=== PATIENT | female | born 2000 | race Caucasian/White ===

== ENCOUNTER 2020-01-22 10:43 | Outpatient (REF) | payer OTHER, SELFPAY | END 2020-01-22 10:44 | disposition home or self-care (01) | LOC: HO.LAB 10:43 | PROVIDERS: Visit Provider Internal Medicine | DX: Z20.828 Contact with and (suspected) exposure to other viral communicable diseases (principal) | CPT/HCPCS: U0003 ==

== ENCOUNTER 2020-01-28 15:59 | Outpatient (REF) | payer OTHER, SELFPAY | END 2020-01-28 16:00 | disposition home or self-care (01) | LOC: HO.LAB 15:59 | PROVIDERS: Visit Provider Internal Medicine | DX: Z20.828 Contact with and (suspected) exposure to other viral communicable diseases (principal) | CPT/HCPCS: C9803; U0003 ==

== ENCOUNTER 2021-01-29 11:11 | Emergency (ER) | payer OTHER, SELFPAY ==
--- NOTE | 2021-01-29 11:20 | PC.NURSE ---
PT TO HAVE EKG IN TRIAGE
--- NOTE | 2021-01-29 11:21 | ECG_ITS ---
Test Reason : chest pain Blood Pressure : / mmHG Vent. Rate : 073 BPM Atrial Rate : 073 BPM P-R Int : 084 ms QRS Dur : 092 ms QT Int : 366 ms P-R-T Axes : 013 081 037 degrees QTc Int : 403 ms Sinus rhythm with sinus arrhythmia with short MO Otherwise normal ECG No previous ECGs available Referred By: Generic ED Physician Electronically Signed By:Braulio Vergara
[2021-01-29 11:32] VITALS: BP 117/65; PULSE 73; RESP 16; TEMP 36.3; O2SAT 99; BMI 23.0
--- NOTE | 2021-01-29 12:03 | ED_ITS ---
HPI - Chest Pain General Chief Complaint: Chest Pain Stated Complaint: CHEST PAIN DIFF BREATING Time Seen by Provider: 01/29/21 12:03 Source: patient Limitations: no limitations History of Present Illness HPI narrative: Patient presents to the ER with sore throat chest wall pain and slight cough. Patient states symptoms have been about 2 days. Patient denies history of asthma diabetes or tobacco history. Patient is fully vaccinated for COVID-19. Cough has been nonproductive. Patient denies any known COVID-19 exposure or travel history. Symptoms are [id number]. Pain increases with swallowing from sore throat. That is 5/10. No other complaints at this time. Related Data Allergies Allergy/AdvReac Type Severity Reaction Status Date / Time No Known Allergies Allergy Verified 01/29/21 11:21 Review of Systems Constitutional: Constitutional: Denies chills, Denies fever(s) and Denies headache(s) ENT: Denies headache(s), Reports nasal congestion, Denies neck pain and Reports sore throat Cardiovascular: Cardiovascular: Denies chest pain and Reports dyspnea Respiratory: Respiratory: Reports cough, Reports pain with cough and Reports dyspnea Gastrointestinal: Gastrointestinal: Denies nausea and Denies vomiting Musculoskeletal: Musculoskeletal: Denies back pain and Denies neck pain Neurologic: Denies headache(s) Endocrine: Endocrine: Reports no additional endocrine complaints Allergic/Immunologic: Allergic/Immunologic: Reports no additional allergic/immunologic complaints [facility]LY [facility] Past Medical History Medical History No known health problems Social History Social History Advance Directives: No Advance Directives Information Provided: No Patient : No Physical Exam Vital Signs: Vital Signs: Last Vital Signs Temp 97.4 F 01/29/21 11:32 Pulse 73 01/29/21 11:32 Resp 16 01/29/21 11:32 BP 117/65 01/29/21 11:32 Pulse Ox 99 01/29/21 11:32 BMI result Body Mass Index 23.0 vital signs have been reviewed as normal and appeared to be correct. Blood pressure normal. Heart rate normal. Respiration rate normal. Temperature normal. Oxygen saturation normal. Appearance: Alert. Oriented X3. No acute distress. Head: Normal external exam. Normocephalic. Atraumatic. Eyes: PERRLA. EOMI. Conjunctiva and sclera normal. Eyelids normal. ENT: Positive erythema of the throat uvula is midline no evidence of peritonsillar abscess. No trismus no drooling Neck: Soft full range of motion CVS: Heart regular rate and rhythm no murmurs and rubs Respiratory: Breath sounds are clear to auscultation bilaterally. No accessory muscle use noted. Back: Full range of motion noted. Skin: Skin warm and dry. Normal skin color. No rashes ecchymosis noted Extremities: Moving all extremities patient is ambulatory Neuro: Oriented X 3. No motor deficit. No sensory deficit. Reflexes normal. Course Course Course Narrative: Acute pharyngitis Viral URI COVID-19 Acute bronchitis EKG reviewed normal sinus rhythm at a rate of [address] elevation Swab for strep and COVID-19 is pending Patient's vital signs are stable 12:34 p.m. Swab for COVID-19 is negative and strep. MDM - Chest Pain Lab Data Labs: Lab Results 01/29/21 01/29/21 Range/Units 11:55 11:55 COVID-19 (RADHA) Negative (Negative) COVID-19 Clin Com See Note S. pyogenes GrpA BRITNI Negative (Negative) Discharge Plan Discharge Clinical Impression: Upper respiratory infection Qualifiers: URI type: unspecified viral URI Qualified Code(s): J06.9 - Acute upper respir atory infection, unspecified Patient Disposition: Home, Self-Care Instructions: Upper Respiratory Infection (ED) Additional Instructions: COVID-19 swab test is negative Rapid strep test is negative they will call you if he becomes positive Increase fluids rest Tylenol Motrin for pain or fever Return if symptoms worsen Stand Alone Forms: Work/School Release
[2021-01-29 12:12] LABS: IDNOW Serial# 9DD0AD1C; Strep A Nucleic Acid Negative (Negative)
[2021-01-29 12:32] LABS: COVID-19 Test Negative (Negative); IDNOW Serial# 55D5AD1C
[2021-01-29 12:40] VITALS: BP 109/70; PULSE 70; RESP 18; TEMP 36.9; O2SAT 99
== END 2021-01-29 13:01 | disposition home or self-care (01) ==
PROVIDERS: Emergency Provider Emergency Medicine
DX: J06.9 Acute upper respiratory infection, unspecified (principal); Z20.822 Contact with and (suspected) exposure to COVID-19; J02.9 Acute pharyngitis, unspecified
CPT/HCPCS: 36415; 87635; 87651; 93005; 99283; 99284

== ENCOUNTER 2023-04-25 13:30 | Emergency (ER) | payer OTHER, SELFPAY ==
--- NOTE | ~2023-04-25 | CT_ITS ---
EXAMINATION: CT ABDOMEN AND PELVIS WITH CONTRAST CLINICAL INFORMATION: Abdominal pain, nausea and vomiting COMPARISON: Ultrasound abdomen 04/25/2023 TECHNIQUE: Multidetector volumetric images were obtained from the superior aspect of the liver through the pubic symphysis following administration 85 mL of Omnipaque 350 intravenous contrast. Sagittal and coronal reformatted images were obtained on the technologist's workstation. Oral contrast: No This CT examination was performed using dose optimization techniques as appropriate, variously including the following: *Automated exposure control *Adjustment of mA and/or kV according to patient size (this includes techniques or standardized protocols for targeted exams where dose is matched to indication/reason for exam; i.e. extremities or head) *Use of iterative reconstruction technique DLP: 393 mGy-cm FINDINGS: LUNG BASES: The visualized lung bases are unremarkable. LIVER, GALLBLADDER, AND BILIARY TREE: The liver is normal in size, shape, and attenuation. No focal hepatic lesion or biliary ductal dilatation is present. The gallbladder is unremarkable with no evidence of radiopaque gallstones, gallbladder wall thickening, or obvious pericholecystic inflammatory changes. PANCREAS: Unremarkable. SPLEEN: Unremarkable. ADRENAL GLANDS: Unremarkable. KIDNEYS AND URETERS: The kidneys are normal in size, shape, and attenuation. No hydronephrosis, hydroureter, or calculi seen. No perinephric stranding. BLADDER: Unremarkable. GASTROINTESTINAL TRACT: The small and large bowel are unremarkable. The appendix is not seen but there is no evidence of appendicitis evidence to suggest appendicitis. ABDOMINAL WALL: No significant hernia is appreciated. LYMPH NODES: Normal. VASCULAR: Unremarkable. PELVIC VISCERA: The uterus and adnexa are unremarkable. A small amount of free fluid is present in the pelvis. OSSEOUS STRUCTURES: Unremarkable. CT/CT abdomen pelvis w IV con IMPRESSION: No significant abnormality. Fleischner guidelines were followed.
--- NOTE | ~2023-04-25 | US_ITS ---
EXAMINATION: US ABDOMEN COMPLETE CLINICAL INFORMATION: Nausea and vomiting. Lower abdominal pain. COMPARISON: None available. TECHNIQUE: Real-time imaging of the abdominal viscera. FINDINGS: PANCREAS: The pancreas is not visualized secondary to obscuration by overlying bowel gas. ABDOMINAL AORTA: The proximal, mid, and distal segments are normal in caliber. INFERIOR VENA CAVA: Visualized portions are normal. LIVER: Normal. The liver is normal in size. The liver contour is normal. Parenchymal echogenicity is normal. No focal hepatic lesion. There is no intrahepatic biliary duct dilatation seen. GALLBLADDER: Normal. The gallbladder is physiologically distended without evidence of stones, sludge, polyps, wall thickening or pericholecystic fluid. COMMON BILE DUCT: Normal in caliber measuring 0.2 cm in diameter. RIGHT KIDNEY: Normal. No hydronephrosis. No renal calculi or focal parenchymal lesions. The kidney measures 9.8 cm in maximum dimension. LEFT KIDNEY: Normal. No hydronephrosis. No renal calculi or focal parenchymal lesions. The kidney measures 10.3 cm in maximum dimension. SPLEEN: Normal. The spleen measures 8.7 cm in maximum dimension. FREE FLUID: None. The appendix is not visualized. The right ovary measures 2.7 x 1.4 x 1.4 cm. Vascular flow is seen to the right ovary. US/US abdomen complete IMPRESSION: Visualized abdominal and pelvic structures are within normal limits. The pancreas is not visualized secondary to obscuration from overlying bowel gas. The appendix is not seen.
[2023-04-25 13:39] VITALS: BP 110/64; PULSE 60; O2SAT 100
[2023-04-25 14:06] VITALS: BP 104/48; PULSE 60; RESP 17; TEMP 36.1; O2SAT 98; BMI 23.0
--- NOTE | 2023-04-25 14:06 | ED_ITS ---
HPI - Nausea/Vomiting/Diarrhea General Chief complaint: Abdominal Pain Stated complaint: abd pain,n/v,dizzy per ems Time Seen by Provider: 04/25/23 19:08 Source: patient Mode of arrival: EMS Limitations: no limitations History of Present Illness HPI Narrative: Patient is a 22-year-old female who presents to the emergency department via EMS for evaluation of abdominal pain. She reports approximately 2 hours prior to arrival she developed diffuse lower abdominal pain with nausea and multiple episodes of bilious vomiting approximately 8-10 episodes. Pain has been constant with varying intensity. Intermittent dizziness during episodes of vomiting. Pain is primarily in the suprapubic region but does radiate to the bilateral sides as well as diffusely across the lower back. She reports a history of similar pain in the past reportedly with unidentified etiology. She denies any recent fevers, chills, chest pain, shortness of breath, possibility of , concern for sexually transmitted infection, dysuria, urinary frequency/urgency/hesitancy, hematuria, abnormal vaginal discharge Related Data Previous Rx's Medication Instructions Recorded ondansetron 4 mg disintegrating 4 mg PO Q8H PRN nausea and 04/25/23 tablet vomiting #10 tabs Allergies Allergy/AdvReac Type Severity Reaction Status Date / Time No Known Allergies Allergy Verified 04/25/23 14:06 Review of Systems 2 Review of Systems: Yes all other systems are reviewed and are negative PMFSH Past Medical History Attestation statement: The following information was validated with the patient. Source: old records reviewed Medical History No known health problems Social History Social History Smoked in Last 30 Days: No Use of substances other than those prescribed or required for medical reasons: No Advance Directives: No Advance Directives Information Provided: No Patient : No Physical Exam 2 Vital Signs: Vital Signs: Last Vital Signs Temp 98.1 F 04/25/23 20:18 Pulse 73 04/25/23 20:18 Resp 18 04/25/23 20:18 BP 105/68 04/25/23 20:18 Pulse Ox 99 04/25/23 20:18 O2 Del Method Room Air 04/25/23 20:18 BMI result Body Mass Index 23.0 Appearance: Alert.?Oriented to person, place and time. No acute distress.?Normal affect. Eyes: Pupils equal, round and reactive to light.? ENT: Pharynx normal.?? Neck: Normal inspection.? Neck supple.?? CVS: Heart sounds normal. Normal heart rate and rhythm.? Pulses normal.?? Respiratory: No respiratory distress.? Lung sounds clear to auscultation bilaterally?? Abdomen: Soft with diffuse lower abdominal tenderness. Diffuse lower lumbar/CVA tenderness bilaterally Normoactive bowel sounds. No pulsatile mass.?? Skin: Skin warm and dry.? Normal skin color.? Extremities: No lower extremity edema.? No calf ttp? Neuro: Moves all extremities spontaneously. Sensation intact bilaterally. CN II- XII intact. No focal neuro deficits. Ambulates with normal steady gait. Course Course Course Narrative: RME-14PM - 22-year-old female presenting to the ER with complaints of sudden onset of nausea/vomiting approximately 2 hours prior to arrival with associated suprapubic abdominal pain. Reports some dizziness. Denies any changes in vision, fevers, cough congestion, chest pain or shortness of breath, palpitations paresthesias, black or bloody stools, constipation, diarrhea, dysuria, abnormal vaginal discharge, recent travel or sick contacts she is aware of or any other symptoms complaints or concerns at this time. Plan: Labs, UA, COVID/RSV/flu swab ordered at this time. Patient will be sent back to the waiting room to be evaluated in the ED Reevaluation(s) Reevaluation #1: CT of the abdomen and pelvis is without acute pathology. Tolerating oral intake, discussed with patient possible viral etiology. Discussed bland diet, prescription for Zofran to pharmacy, outpatient follow-up with primary care provider, worrisome signs and symptoms that would warrant re-evaluation in the emergency department. All questions answered. Stable for discharge. Time: 21:16 Medications Administered Discontinued Medications Generic Name Dose Route Start Last Admin Trade Name Freq PRN Reason Stop Dose Admin Iohexol 85 ml 04/25/23 19:56 04/25/23 19:57 Iohexol 350 Mg/Ml 100 Ml Infus..Btl IV 04/25/23 19:57 85 ml ONCE ONE Administration Ketorolac Tromethamine 30 mg 04/25/23 20:06 04/25/23 20:53 Ketorolac Tromethamine 30 Mg/Ml Vial IVPUSH 04/25/23 20:07 30 mg ONCE ONE Administration Ondansetron HCl 4 mg 04/25/23 16:18 04/25/23 16:20 Ondansetron Odt 4 Mg Tab.Rapdis TRANSLINGU 04/25/23 16:19 4 mg ONCE ONE Administration Ondansetron HCl 4 mg 04/25/23 20:06 04/25/23 20:53 Ondansetron Hcl 4 Mg/2 Ml Vial IVPUSH 04/25/23 20:07 4 mg ONCE ONE Administration Medical Decision Making Medical Decision Making [facility] Narrative: Patient is a 22-year-old female who presents emergency department for evaluation of abdominal pain with nausea and vomiting as per HPI. At the time my examination she appears overall well, nontoxic, afebrile without tachycardia. Reports nausea has resolved at this time and has been without vomiting for the past hour. Lower abdominal pain is currently 6/10 for which she will receive Toradol. An ultrasound was obtained prior to my assumption of care which is without acute identify a pathology however pancreas was not visualized and the appendix is not seen. Upon review of labs, urinalysis with microscopic hematuria, not compelling for urinary tract infection, hCG is negative. CMP overall unremarkable aside from elevated random glucose at 01:49 she did admit to having had something to eat prior to labs being obtained, lipase is within normal range. CBC reveals notable leukocytosis of 20.5 with left shift, may be reactive due to vomiting, however will obtain CT of the abdomen and pelvis for further evaluation Differential Diagnosis Differential Diagnoses: The differential diagnosis associated with the presentation includes (Viral syndrome, diverticulitis, appendicitis, colitis, renal colic, hydronephrosis, urinary tract infection. Less likely ovarian torsion, ectopic .) Admission/Observation Consideration of admission/observation: Escalation of care including admission/observation considered (See narrative above in course narrative for further detail) Lab Data MDM Lab Attestation statement: I reviewed the patient's lab results. (See narrative above) 04/25/23 14:31 04/25/23 14:31 Labs: Lab Results 04/25/23 04/25/23 Range/Units 14:31 15:37 WBC 20.5 H (4.8-10.8) X10*3/uL RBC 4.72 (4.20-5.50) X10*6/uL Hgb 13.8 (12.0-16.0) g/dl Hct 41.0 (37.0-47.0) % MCV 86.9 (80.0-98.0) fL MCH 29.2 (27.0-33.0) pg MCHC 33.7 (31.0-35.0) g/dl RDW 11.8 (11.0-16.0) % Plt Count 249 (160-400) X10*3/uL MPV 11.1 (9.4-12.3) fL Immature Gran % (Auto) 0.6 H (0.0-0.4) % Neut % (Auto) 87.9 H (45-73) % Lymph % (Auto) 6.4 L (20-40) % [place] % (Auto) 4.5 (2-11) % Eos % (Auto) 0.2 (0-4) % Baso % (Auto) 0.4 (0-2) % Lymph # (Auto) 1.3 (1.2-4.9) X10*3/uL [place] # (Auto) 0.9 (0.1-1.2) X10*3/uL Eos # (Auto) 0.0 (0.0-0.4) X10*3/uL Baso # (Auto) 0.1 (0.0-0.2) X10*3/uL Abs Immat Gran (auto) 0.12 H (0.00-0.03) X10*3/uL Absolute Neuts (auto) 18.0 H (2.0-8.3) x10*3/uL Absolute Nucleated RBC 0.000 (0.0-0.012) X10*3/uL Nucleated RBC % (auto) 0.0 (0.0-0.2) /100WBC Sodium 137 (135-145) mmol/L Potassium 4.1 (3.3-5.1) mmol/L Chloride 106 (96-108) mmol/L Carbon Dioxide 23 (22-29) mmol/L Anion Gap 12 (12-20) BUN 13 (9-16) mg/dL Creatinine 0.72 (0.5-1.4) mg/dL Estim Creat Clear Calc 100.5 Estimated GFR > 60 Random Glucose 149 H (60-115) mg/dL Calcium 9.2 (8.4-10.2) mg/dL Magnesium 1.7 (1.6-2.6) mg/dL Total Bilirubin 0.4 (0.0-1.0) mg/dL Direct Bilirubin 0.2 (0.0-0.5) mg/dL AST 14 (5-31) U/L ALT 10 (0-31) U/L Alkaline Phosphatase 54 (39-117) U/L Total Protein 7.9 (6.5-8.0) g/dL Albumin 4.5 (3.5-5.0) g/dL Lipase 10 (8-78) U/L Urine Color Yellow Urine Appearance Cloudy Urine pH 5.5 (5.0-9.0) Ur Specific [place] >= 1.030 H (1.005-1.025) Urine Protein 30 (1+) H (Neg-Trace) mg/dL Urine Glucose (UA) Negative (Negative) mg/dL Urine Ketones >=160 (Negative) mg/dL Urine Blood Large (3+) H (Negative) Urine Nitrite Negative (Negative) Ur Leukocyte Esterase Negative (Negative) Urine RBC 6-10 H (0-2) /HPF Urine WBC 6-10 (0-5) /HPF Ur Squamous Epith Cells 6-10 (0-2) /HPF Urine Bacteria 1+ (None Seen) Hyaline Casts 0-2 (0-2) /LPF Urine Yeast Present Urine Test NEGATIVE (NEGATIVE) Influenza Type A (PCR) NEGATIVE (Negative) Influenza Type B (PCR) NEGATIVE (Negative) RSV RNA Qual (PCR) NEGATIVE (Negative) SARS-CoV-2 RNA (RT-PCR) NEGATIVE (Negative) Radiology Impression Discussion of test interpretation with radiology: I have reviewed the radiologist's reading. Radiologist Impression: US/US abdomen complete IMPRESSION: Visualized abdominal and pelvic structures are within normal limits. The pancreas is not visualized secondary to obscuration from overlying bowel gas. The appendix is not seen. Independent Historian Clinical information obtained from an independent historian. History obtained from or confirmed by: Friend (Present who confirms history) Discharge Plan Discharge Clinical Impression: Abdominal pain Patient Disposition: Home, Self-Care Instructions: Abdominal Pain (ED) Additional Instructions: Introduce a bland diet including crackers, bananas, rice, soup, toast, and boiled vegetables. This may progress to plain baked or boiled chicken or turkey. Avoid dairy products or foods high in fat or grease. Take Zofran as needed for nausea/vomiting. You can take ibuprofen 200 mg, 3 tablets (600mg) every 6-8 hours as needed for pain, in addition to Tylenol 500 mg, 2 tablets (1,000mg) every 4-6 hours as needed for pain, but not to exceed 3 doses daily (3,000mg).? Follow-up with your primary care provider within 3 days. Return back to emergency department any new or worsening symptoms or concerns. Prescriptions: New ondansetron 4 mg tablet,disintegrating 4 mg PO Q8H PRN (Reason: nausea and vomiting) Qty: 10 0RF
[2023-04-25 14:36] LABS: MANUAL DIFF FLAG NO
[2023-04-25 14:37] LABS: Basophils Absolute Auto 0.1 X10*3/uL (0.0-0.2); Basophils Percent Auto 0.4 % (0-2); Eosinophils Percent Auto 0.2 % (0-4); Hemoglobin 13.8 g/dl (12.0-16.0); Imm Gran Abs Auto 0.12 X10*3/uL (0.00-0.03); Imm Gran Pct Auto 0.6 % (0.0-0.4); Lymphocytes Absolute Auto 1.3 X10*3/uL (1.2-4.9); Lymphocytes Percent Auto 6.4 % (20-40); Mean Corpuscular HGB Conc 33.7 g/dl (31.0-35.0); Mean Corpuscular Hemoglobin 29.2 pg (27.0-33.0); Mean Corpuscular Volume 86.9 fL (80.0-98.0); Mean Platelet Volume 11.1 fL (9.4-12.3); Monocytes Absolute Auto 0.9 X10*3/uL (0.1-1.2); Monocytes Percent Auto 4.5 % (2-11); Neutrophils Percent Auto 87.9 % (45-73); Platelet Count 249 X10*3/uL (160-400); Red Blood Count 4.72 X10*6/uL (4.20-5.50); Red Cell Distribution Width 11.8 % (11.0-16.0); White Blood Count 20.5 X10*3/uL (4.8-10.8)
[2023-04-25 14:52] LABS: Alanine Aminotransferase 10 U/L (0-31); Albumin Level 4.5 g/dL (3.5-5.0); Alkaline Phosphatase 54 U/L (39-117); Anion Gap 12 (12-20); Aspartate Amino Transferase 14 U/L (5-31); Bilirubin Direct 0.2 mg/dL (0.0-0.5); Bilirubin Total 0.4 mg/dL (0.0-1.0); Blood Urea Nitrogen 13 mg/dL (9-16); Calcium 9.2 mg/dL (8.4-10.2); Carbon Dioxide 23 mmol/L (22-29); Chloride 106 mmol/L (96-108); Creatinine Clr Calc Pharmacy 100.5; Estimated Glomerular Filt Rate > 60; Glucose Random 149 mg/dL (60-115); Lipase 10 U/L (8-78); Magnesium 1.7 mg/dL (1.6-2.6); Potassium 4.1 mmol/L (3.3-5.1); Sodium 137 mmol/L (135-145); Total Protein 7.9 g/dL (6.5-8.0)
[2023-04-25 15:33] LABS: Influenza A PCR NEGATIVE (Negative); Influenza B PCR NEGATIVE (Negative); Resp Syncy Virus RNA Qual PCR NEGATIVE (Negative); SARS COV2 PCR INHOUSE NEGATIVE (Negative)
[2023-04-25 15:44] LABS: Appearance Urine Cloudy; Color Urine Yellow; Glucose Urine UA Negative (Negative); Leukocyte Esterase Urine Negative (Negative); Nitrite Urine Negative (Negative); PH 5.5 (5.0-9.0); Specific Gravity - Urine >= 1.030 (1.005-1.025); UMIC TRIGGER UACC YES; Urine Blood Large (3+) (Negative); Urine Ketones >=160 mg/dL (Negative); Urine Protein 30 (1+) mg/dL (Neg-Trace)
[2023-04-25 15:46] LABS: UPreg QC Valid YES; Urine Pregnancy NEGATIVE (NEGATIVE)
[2023-04-25 16:18] VITALS: BP 128/82; PULSE 78; RESP 16; TEMP 36; O2SAT 100
[2023-04-25] MEDS: Ondansetron ODT 4 MG TAB.RAPDIS TRANSLINGU (16:20)
[2023-04-25 16:42] LABS: Bacteria Urine 1+ (None Seen); Hyaline Casts Urine 0-2 /LPF (0-2); UACC Culture Trigger YES
[2023-04-25] MEDS: iohexoL 350 MG/ML 100 ML INFUS..BTL 85 ML IV (19:57)
[2023-04-25 20:18] VITALS: BP 105/68; PULSE 73; RESP 18; TEMP 36.7; O2SAT 99
[2023-04-25] MEDS: ondansetron HCL 4 MG/2 ML VIAL IVPUSH (20:53)
[2023-04-25] MEDS: Ketorolac Tromethamine 30 MG/ML VIAL IVPUSH (20:53)
== END 2023-04-25 21:35 | disposition home or self-care (01) ==
PROVIDERS: Physician Assistant Medical; Emergency Provider Emergency Medicine; PCP Internal Medicine
DX: R10.30 Lower abdominal pain, unspecified (principal); R11.2 Nausea with vomiting, unspecified; R31.29 Other microscopic hematuria; Z11.52 Encounter for screening for COVID-19; Z20.828 Contact with and (suspected) exposure to other viral communicable diseases
CPT/HCPCS: 0241U; 36415; 74177; 76700; 80053; 81001; 81025; 82248; 83690; 83735; 85025; 87086; 96374; 96375; 99284; J1885; J2405; Q9967

== ENCOUNTER 2025-02-20 14:48 | Outpatient (REF) | payer OTHER, SELFPAY ==
--- OUTSIDE RECORDS SUMMARY | 2025-02-20 14:00 | XMS_ITS | Encounter Summary ---
Author Organization [employer] [facility] Address [address] [place] [address] Care Team Providers Care Dresser Tender Name Role Phone Xiao Saldana CNP Primary Care Provider [phone] [phone] Reason for Referral * Consultation (Routine) - Pending Review Specialty Diagnoses / Procedures Referred By Jinny deutsch Referred To Contact Obstetrics and Gynecology Diagnoses Menorrhagia with regular cycle Xiao Saldana CNP [address] [place] [address] Phone: tel: fax: Referral ID Status Reason Start Date Expiration Date Visits Requested Visits Authorized [id number] Pending Review Specialty Services Required 02/20/2026 1 1 * Imaging (Routine) - Pending Review Specialty Diagnoses / Procedures Referred By Jinny deutsch Referred To Contact Radiology Diagnoses Menorrhagia with regular cycle Procedures US Pelvis Transvaginal Xiao Saldana CNP [address] [place] [address] Phone: tel: fax: Referral ID Status Reason Start Date Expiration Date V isits Requested Visits Authorized [id number] Pending Review 02/20/2025 02/20/2026 1 1 * Imaging (Routine) - Pending Review Specialty Diagnoses / Procedures Referred By Jinny deutsch Referred To Contact Radiology Diagnoses Menorrhagia with regular cycle Procedures Us Pelvis complete Xiao Saldana CNP [address] [place] [address] Phone: tel: fax: Referral ID Status Reason Start Date Expiration Date V isits Requested Visits Authorized [id number] Pending Review 02/20/2025 02/20/2026 1 1 Encounter Details Date Type Department Care Team ([facility] st Contact Info) Description 02/20/2025 2:00 PM EST Office Visit [facility] CHC MED & PEDS [address] [place] [address] Xiao Saldana CNP [address] [place] [address] Encounter to establish care with new provider (Primary Dx); Menorrhagia with regular cycle; Seborrheic dermatitis Social History Tobacco Use Types Packs/Day Years Used Date Smoking Tobacco: Never Passive Smoke Exposure: Never Smokeless Tobacco: Never Tobacco Cessation:Counseling Given: Not Answered Depression Answer Date Recorded Patient Health Questionnaire-9 Score 2 02/20/2025 Patient Health Questionnaire-9 Score 2 02/20/2025 Last PHQ-9: Questionnaire Data Not on file 1 Depression Answer Date Recorded Patient Health Questionnaire-2 Score 0 02/20/2025 Comments No Sex and Gender Information Value Date Recorded Sex Assigned at Female 08/27/2024 8:57 AM EDT Legal Sex Female 10:54 AM EST Gender Identity Female 08/27/2024 8:57 AM EDT Sexual Orientation Straight 08/27/2024 8: 57 AM EDT documented as of this encounter Last Filed Vital Signs Vital Sign Reading Time Taken Comments Blood Pressure 122/80 02/20/2025 2:12 PM EST Pulse 78 02/20/2025 2:12 PM EST Temperature 36.6 C (97.8 F) 02/20/2025 2:12 PM EST Respiratory Rate 14 02/20/2025 2:12 PM EST Oxygen Saturation 98% 02/20/2025 2:12 PM EST Inhaled Oxygen Concentration - - Weight 65.8 kg (145 lb) 02/20/2025 2:12 PM EST Height 157.5 cm (5' 2 ) 02/20/2025 2:12 PM EST Body Mass Index 26.52 02/20/2025 2:12 PM EST documented in this encounter Functional Status * SBIRT - Alcohol Question Answer Date of Assessment Author How many times in the past y ear have you had 5 or more (for men) or 4 or more (for women) drinks in a day? 0 02/20/2025 3:11 PM EST Bridges-ColonShaq [place] Score 0 02/20/2025 3:11 PM EST Davil a-ColonAlthea [place] * SBIRT - Drugs Question Answer Date of Assessment Author How many times in the past y ear have you used an illegal drug or used a prescription medication for non-medical reasons? 0 02/20/2025 3:11 PM EST Bridges-ColonShaq [place] Score 0 02/20/2025 3:11 PM EST Davil a-ColonAlthea [place] * Over the past 2 weeks, how often have you been bothered by any of the following problems? Question Answer Date of Assessment Author Patient Health Questionnaire -2 Score 0 02/20/2025 3:10 PM EST Bridges-ColonShaq [place] * Little interest or pleasure in doing things Answer Date of Assessment Author Not at all 02/20/2025 3:10 PM EST Bridges-Co maria e, [place], [place] * Feeling down, depressed, or hopeless Answer Date of Assessment Author Not at all 02/20/2025 3:10 PM EST Bridges-Co maria e [place], [place] * Trouble falling or staying asleep, or sleeping too much Answer Date of Assessment Author Not at all 02/20/2025 3:10 PM EST Bridges-Co maria e [place], [place] * Feeling tired or having little energy Answer Date of Assessment Author More than half the days 02/20/2025 3:10 PM EST D cano-ColonAlthea, [place] * Poor appetite or overeating Answer Date of Assessment Author Not at all 02/20/2025 3:10 PM EST Bridges-Co maria e, [place], [place] * Feeling bad about yourself - or that you are a failure or have let yourself or your family down Answer Date of Assessment Author Not at all 02/20/2025 3:10 PM EST Bridges-Co maria e [place], [place] * Trouble concentrating on things, such as reading the newspaper or watching television Answer Date of Assessment Author Not at all 02/20/2025 3:10 PM EST Bridges-Co Althea sanderson [place] * Moving or speaking so slowly that other people could have noticed? Or the opposite - being so fidgety or restless that you have been moving around a lot more than usual. Answer Date of Assessment Author Not at all 02/20/2025 3:10 PM EST Bridges-Co Althea sanderson [place] * Thoughts that you would be better off or hurting yourself in some way Answer Date of Assessment Author Not at all 02/20/2025 3:10 PM EST Bridges-Co Althea sanderson [place] * Patient Health Questionnaire-9 Score Answer Date of Assessment Author 2 02/20/2025 3:10 PM SCOTT Bridges-Co Althea sanderson [place] * Over the last 2 weeks, how often have you been bothered by any of the following problems? Question Answer Date of Assessment Author Feeling nervous, anxious, or on edge 0 02/20/2025 3:11 PM EST Shaq Sosa MA Not being able to stop or control worrying 0 02/20/2025 3:11 PM EST Shaq Sosa MA Worrying too much about different things 0 02/20/2025 3:11 PM EST Shaq Sosa MA Trouble relaxing 0 02/20/2025 3:11 PM SCOTT D Althea Giles MA Being so restless that it is hard to sit still 0 02/20/2025 3:11 PM Shaq Brewer MA Becoming easily annoyed or irritable 0 02/20/2025 3:11 PM EST Shaq Sosa MA Feeling afraid as if somethi ng awful might happen 0 02/20/2025 3:11 PM EST Shaq Sosa MA MELVINA-7 Total Score 0 02/20/2025 3:11 PM Althea Brewer MA * How difficult have these problems made it for you to do your work, take care of things at home, or get along with other people? Answer Date of Assessment Author Not difficult at all 02/20/2025 3:10 PM SCOTT Morenoi laAlthea Connor MA documented as of this encounter Plan of Treatment Upcoming Encounters Date Type Department Care Team (Late st Contact Info) Description 04/02/2025 9:45 AM EST Office Visit [facility] CHC MED & PEDS [address] [place] [address] Xiao Saldana, HR ASSISTANT [address] [place] [address] Scheduled Orders Name Type Priority Associated Diagnoses Orde r Schedule CBC auto differential Lab Routine Encounter to establish care with new provider Expected: 02/20/2025 (Approximate), Expires: 02/20/2026 Basic Metabolic Panel Lab Routine Encounter to establish care with new provider Expected: 02/20/2025 (Approximate), Expires: 02/20/2026 Hepatic Function Panel Lab Routine Encounter to establish care with new provider Expected: 02/20/2025 (Approximate), Expires: 02/20/2026 HIV-1/2 Antigen and Antibodies, Fourth Generation, with Reflexes Lab Routine Encounter to establish care with new provider Expected: 02/20/2025 (Approximate), Expires: 02/20/2026 Hepatitis C Antibody with Reflex to HCV, RNA, Quantitative, Real-Time PCR Lab Routine Encounter to establish care with new provider Expected: 02/20/2025, Expires: 02/20/2026 Us Pelvis complete Imaging Routine Menorrhagia with regular cycle Expected: 02/20/2025, Expires: 02/20/2026 US Pelvis Transvaginal Imaging Routine Menorrhagia with regular cycle Expected: 02/20/2025, Expires: 02/20/2026 Iron And Total Iron Binding Capacity Lab Routine Menorrhagia with regular cycle Expected: 02/20/2025, Expires: 02/20/2026 Ferritin Lab Routine Menorrhagia with regular cycle Expected: 02/20/2025, Expires: 02/20/2026 Scheduled Referrals Name Type Priority Associated Diagnoses Order Schedule Referral to Obstetrics / Gynecology Outpatient Referral Routine Menorrhagia with regular cycle Expected: 02/20/2025 (Approximate), Expires: 02/20/2026 documented as of this encounter Visit Diagnoses Diagnosis Encounter to establish care with new provider- Primary Menorrhagia with regular cycle Seborrheic dermatitis Unspecified seborrheic dermatitis documented in this encounter Additional Health Concerns Assessment Noted Time PHQ-9 Depression Total Score: 2 02/21/20 3:10 PM EST documented as of this encounter Care Teams Dresser Tender Relationship Specialty Start Date End Date Xiao Saldana CNP [address] [place] [address] [place] [address] PCP - General Family Medicine 02/20/25 documented as of this encounter
--- OUTSIDE RECORDS SUMMARY | 2025-02-20 15:48 | XMS_ITS | Encounter Summary ---
Author Organization [facility] Address [address] [place] [address] [address] [place] [address] Care Team Providers Care Senior Finance Manager Name Role Phone Xiao Saldana LEAD PROGRAMMER ANALYST Primary Care Provider [phone] Reason for Visit * Reason Onset Date Comments Appointment Request 12/31/2024 Encounter Details Date Type Department Care Team (Late st Contact Info) Description 12/31/2024 Telephone [facility] MEDICINE [address] [place], [place] [phone] Russel Bowie MD [address] [place], [place] [phone] Appointment Request Social History Tobacco Use Types Packs/Day Years Used Date Smoking Tobacco: Never Comments Unknown Sex and Gender Information Value Date Recorded Sex Assigned at Female 08/27/2024 8:57 AM EDT Legal Sex Female 10:54 AM EST Gender Identity Female 08/27/2024 8:57 AM EDT Sexual Orientation Straight 08/27/2024 8: 57 AM EDT documented as of this encounter Miscellaneous Notes * Telephone Encounter - Erika Workman - 12/31/2024 2:40 PM EST TC from caller requesting NEW PATIENT visit . DX : N/A Medical Concern: Menstrual Pain / Pass out Insurance name : Misa Una Location : [place] female doctor Demographic information updated documented in this encounter Plan of Treatment Upcoming Encounters Date Type Department Care Team (Late st Contact Info) Description 04/02/2025 9:45 AM EST Office Visit [facility] CHC MED & PEDS [address] [place] [address] Xiao Saldana CNP [address] [place] [address] documented as of this encounter Visit Diagnoses Not on filedocumented in this encounter Care Teams Senior Finance Manager Relationship Specialty Start Date End Date Xiao Saldana CNP [address] [place] [address] PCP - General Family Medicine 02/20/25 documented as of this encounter
--- OUTSIDE RECORDS SUMMARY | 2025-02-20 15:48 | XMS_ITS | Clinical Summary ---
Author Organization [employer] Address [address] [place] [address] 7 [place] [address] Care Team Providers Care Meat Processor Name Role Phone Xiao Saldana CNP Primary Care Provider [phone] [phone] Allergies No known active allergies Medications ibuprofen 800 MG tabletIndicatio ns:Menorrhagia with regular cycle Take 1 tablet (800 mg) by mouth 3 times daily. 90 tablet 5 03/22/19 26 Active ketoconazole (NIZOral) 2 % shampooIndicati ons:Seborrheic dermatitis Apply topically 2 (two) times a week. 120 mL 6 Active Active Problems No known active problems Encounters Date Type Department Care Team Description 02/20/2025 2:00 PM EST Office Visit [facility] MED & PEDS [address] [place] [address] Xiao Saldana CNP Encounter to establish care with new provider (Primary Dx); Menorrhagia with regular cycle; Seborrheic dermatitis 02/20/2025 Travel 02/18/2025 Telephone [facility] MED & PEDS [address] [place] [address] Althea Sosa MA chart prep 02/13/2025 Travel 12/31/[address] [facility] MEDICINE [address] [place], [place] [phone] Russel Bowie MD Appointment Request from Last 3 Months Immunizations Immunization Administration Dates Next Due DTaP 06/05/2003,01/12/2000,1999 ,1999 HPV, Quadrivalent 02/28/2017,08/11/2010,06/04/19 11 Hep A, ped/adol, 2 dose 05/21/2014,06/03/2010 Hep B, Adolescent or Pediatric 01/12/2000,1999,1999 Hib (PRP-OMP) 06/07/2003,05/20/2000,1999 ,1999 IPV 06/05/2003,01/12/2000,1999 ,1999 MMR 06/05/2003,05/20/2000 Meningococcal B, Recombinant 03/01/2018,02/28/19 18 Meningococcal MCV4O 02/28/2017 Tdap 02/28/2017,06/03/2010 Varicella 08/11/2010,05/20/2000 Social History Tobacco Use Types Packs/Day Years [...] Orientation Straight 08/27/2024 8: 57 AM EDT Last Filed Vital Signs Vital Sign Reading [...] Mass Index 26.52 02/20/2025 2:12 PM EST Plan of Treatment Upcoming Encounters Date Type Department Care Team (Late st Contact Info) Description 04/02/2025 9:45 AM EST Office Visit [facility] CHC MED & PEDS [address] [facility] [place] [address] Les Dimasphillamar, POLISHING WHEEL REPAIRER [address] [place] [address] Health Maintenance Due Date Last Done Comments Depression Screening 1999 HIV Screening 1999 SDOH Screening 1999 Alcohol/Substance Use Screening 2011 Family Planning (PISQ) 05/17/2014 Hepatitis C Screening 05/17/2017 Pap Smear 05/17/2020 Influenza Vaccine (#1) 2024 Disability Screening 02/13/2026 02/13/2025 COVID-19 Vaccine ( season) 2026 08/16/2020, 07/26/2020 Postponed from 10/22/2024 (Patient Refused) Tobacco Screening 02/20/2026 02/20/2025 DTaP/Tdap/Td Vaccines (7 - Td or Tdap) 02/28/2027 02/28/2017, 06/03/2010, 06/05/2003, Additional history exists Zoster Vaccines (1 of 2) 05/17/2049 RSV Patients and Patients Aged 60 years or older (1 - 1-dose 75+ series) 05/17/2074 Hepatitis B Vaccines Completed 01/12/2000, 1999, 1999 IPV Vaccines Completed 06/05/2003, 12/23, 1999, Additional history exists HIB Vaccines Completed 06/07/2003, 04/23, 1999, Additional history exists Hepatitis A Vaccines Completed 05/21/2014, 06/04/19 11 HPV Vaccines Completed 02/28/2017, 07/23, 06/03/2010 Meningococcal Vaccine Completed 02/28/2017 Meningococcal B Vaccine Completed 03/01/2018, 02/28 Pneumococcal Vaccine: Pediatrics (0 to 5 Years) and At-Risk Patients (6 to 49) Years Aged Out No longer eligible based on patient's age to complete this topic RSV under 20 months Aged Out No longe r eligible based on patient's age to complete this topic Rotavirus Vaccines Aged Out No longer eligible based on patient's age to complete this topic Insurance [facility] 2 Care Teams Meat Processor Relationship Specialty Start Date End Date Xiao Saldana CNP [address] [place] [address] PCP - General Family Medicine 02/20/25
--- OUTSIDE RECORDS SUMMARY | 2025-02-20 15:48 | XMS_ITS | Encounter Summary ---
Author Organization [employer] [facility] Address [address] [place] [address] [place], [place] [address] Care Team Providers Care Electrician Sound Name Role Phone Xiao Saldana CNP Primary Care Provider [phone] [phone] Encounter Details Date Type Department Care Team (Latest Contact Info) Description 02/20/2025 Travel Social History Tobacco Use Types Packs/Day Years Used Date Smoking Tobacco: Never Passive Smoke Exposure: Never Smokeless Tobacco: Never Depression Answer Date Recorded Patient Health Questionnaire-9 [...] AM EDT documented as of this encounter Plan of Treatment Upcoming Encounters Date Type Department Care Team ( st Contact Info) Description 04/02/2025 9:45 AM EST Office Visit [facility] CHC MED & PEDS [address] [place] [address] Xiao Saldana CNP [address] [place] [address] documented as of this encounter Visit Diagnoses Not on filedocumented in this encounter Additional Health Concerns Assessment Noted Time PHQ-9 Depression Total Score: 2 02/21/20 25 3:10 PM EST documented as of this encounter Care Teams Electrician Sound Relationship Specialty Start Date End Date Xiao Saldana CNP [address] [place] [address] PCP - General Family Medicine 02/20/25 documented as of this encounter
--- OUTSIDE RECORDS SUMMARY | 2025-02-20 15:48 | XMS_ITS | Encounter Summary ---
Author Organization [employer] [facility] Address [address] [place] [address] Care Team Providers Care Laborer Egg Producing Farm Name Role Phone Unavailable Primary Care Provider Unavailabl e Reason for Visit * Reason Onset Date Comments chart prep 02/18/2025 Encounter Details Date Type Department Care Team (Late st Contact Info) Description 02/18/2025 Telephone [facility] MED & PEDS [address] [place] [address] Althea Sosa MA chart prep Social History Tobacco Use Types Packs/Day Years Used Date Smoking Tobacco: Never Comments Unknown Sex and Gender Information Value Date Recorded Sex Assigned at Female 08/27/2024 8:57 AM EDT Legal Sex Female 10:54 AM EST Gender Identity Female 08/27/2024 8:57 AM EDT Sexual Orientation Straight 08/27/2024 8: 57 AM EDT documented as of this encounter Miscellaneous Notes * Telephone Encounter - Althea Sosa MA - 02/18/2025 12:03 PM EST Chart Prep Labs: not applicable Images: not applicable Referrals: not applicable Vaccines due: Covid and Flu Screenings: pap smear, STI screening, and LMP Overdue care gaps: SBIRT, SDOH, PHQ-9, and MELVINA-7 documented in this encounter Plan of Treatment Upcoming Encounters Date Type Department Care Team (Late st Contact Info) Description 04/02/2025 9:45 AM EST Office Visit [facility] MED & PEDS [address] [place], [place] [phone] Xiao Saldana CNP [address] [place] [address] documented as of this encounter Visit Diagnoses Not on filedocumented in this encounter
--- OUTSIDE RECORDS SUMMARY | 2025-02-20 15:48 | XMS_ITS | Clinical Summary ---
Author Organization [facility] Address [id number] [place] [phone] Care Team Providers Care Environmental Technical Officer Name Role Phone Unavailable Primary Care Provider Unavailabl e Social History Tobacco Use Types Packs/Day Years Used Date Smoking Tobacco: Never Assessed Comments Unknown Sex and Gender Information Value Date Recorded Sex Assigned at Not on file Legal Sex Female 9:43 AM EST Gender Identity Not on file Sexual Orientation Not on file Plan of Treatment Health Maintenance Due Date Last Done Comments HPV Vaccines (1 - 3-dose series) 05/17/2014 DTaP,Tdap,and Td Vaccines (1 - Tdap) 05/17/2018 Hepatitis B Vaccines (1 of 3 - 19+ 3-dose series) 05/17/2018 Cervical Cancer Screening: P ap Smear 05/17/2020 HIV Screening 01/19/2022 Hepatitis C Screening 01/19/2022 Social Influencers of Health Screening 01/19/2022 Depression Screening 02/22/2024 COVID-19 Vaccine ( - 2024-2 6 season) 2024 Influenza Vaccine (#1) 2024 RSV Immunization Adult Patie nts (1 - 1-dose 75+ series) 05/17/2074 HIB Vaccines Aged Out No longer eligi ble based on patient's age to complete this topic Hepatitis A Vaccines Aged Out No long er eligible based on patient's age to complete this topic IPV Vaccines Aged Out No longer eligi ble based on patient's age to complete this topic MMR Vaccines Aged Out No longer eligi ble based on patient's age to complete this topic Meningococcal ACWY Vaccine Aged Out N o longer eligible based on patient's age to complete this topic Meningococcal B Vaccine Aged Out No l onger eligible based on patient's age to complete this topic Pneumococcal Vaccine: Pediat rics (0 to 5 Years) and At-Risk Patients (6 to 49 Years) Aged Out No longer eligible b ased on patient's age to complete this topic RSV Immunization Patients Un brandi 20 months Aged Out No longer eligible b ased on patient's age to complete this topic Varicella Vaccines Aged Out No longer eligible based on patient's age to complete this topic
[2025-02-20 16:10] LABS: MANUAL DIFF FLAG NO
[2025-02-20 16:32] LABS: Hematocrit 39.9 % (37.0-47.0); Hemoglobin 13.1 g/dl (12.0-16.0); Imm Gran Abs Auto 0.04 X10*3/uL (0.00-0.03); Imm Gran Pct Auto 0.4 % (0.0-0.4); Lymphocytes Absolute Auto 1.7 X10*3/uL (1.2-4.9); Mean Corpuscular HGB Conc 32.8 g/dl (31.0-35.0); Mean Corpuscular Hemoglobin 29.1 pg (27.0-33.0); Mean Corpuscular Volume 88.7 fL (80.0-98.0); NRBC Abs Auto 0.000 X10*3/uL (0.0-0.012); NRBC Pct Auto 0.0 /100WBC (0.0-0.2); Platelet Count 254 X10*3/uL (160-400); Red Blood Count 4.50 X10*6/uL (4.20-5.50); White Blood Count 9.0 X10*3/uL (4.8-10.8)
[2025-02-20 17:36] LABS: Alanine Aminotransferase 23 U/L (0-31); Albumin Level 4.6 g/dL (3.5-5.0); Alkaline Phosphatase 67 U/L (39-117); Anion Gap 12 (12-20); Aspartate Amino Transferase 29 U/L (5-31); Blood Urea Nitrogen 9 mg/dL (9-16); Calcium 9.4 mg/dL (8.4-10.2); Carbon Dioxide 26 mmol/L (22-29); Chloride 109 mmol/L (96-108); Estimated Glomerular Filt Rate > 60; Iron 58 mcg/dL (30-160); Percent Iron Saturation 20 % (15-50); Potassium 3.7 mmol/L (3.3-5.1); Sodium 143 mmol/L (135-145); Total Iron Binding Capacity 291 mcg/dL (228-428); Total Protein 7.4 g/dL (6.5-8.0); Unsaturated Iron Binding 233 ug/dL
[2025-02-20 17:52] LABS: Ferritin 61 ng/mL (10-122)
[2025-02-21 05:22] LABS: HIV Num 1 0.08 S/CO (0.00-0.99); ~HepC Num1 0.12 S/CO (0.00-0.79); ~Hepatitis C Antibody Nonreactive (Nonreactive)
== END 2025-02-20 14:49 | disposition home or self-care (01) ==
LOC: HO.CHCLDS 14:48
DX: Z11.4 Encounter for screening for human immunodeficiency virus [HIV] (principal); Z76.89 Persons encountering health services in other specified circumstances; Z11.59 Encounter for screening for other viral diseases; Z13.0 Encounter for screening for diseases of the blood and blood-forming organs and certain disorders involving the immune mechanism
CPT/HCPCS: 36415; 80048; 80076; 82728; 83540; 85025; 86803; 87389